=== PATIENT | female | born 1940 | race Caucasian/White ===

== ENCOUNTER 2018-11-28 02:27 | Day surgery (SDC) | payer MEDICARE, BC ==
--- NOTE | 2018-11-28 03:10 | ED ---
Respiratory - HPI Summary HPI Summary: Pt is a 78 y/o F presenting to the ED with a chief complaint of something stuck in her throat. She states she was eating a roast beef sandwich at around 2100, then later noticed that she could not swallow and had a piece stuck in her throat. She reports wretching without bringing anything up, coughing, difficulty swallowing, and throat pain. - History of Current Complaint Chief Complaint: EDForeignBodyEsophag Stated Complaint: SOMETHING CAUGHT IN THROAT Time Seen by Provider: 11/28/18 02:54 Hx Obtained From: Patient Onset/Duration: Gradual Onset, Lasting Hours, Still Present Timing: Constant Initial Severity: Moderate Current Severity: Moderate Pain Intensity: 5 Sputum Amount: None Aggravating Factor(s): Other - food Alleviating Factor(s): Nothing Associated Signs and Symptoms: Negative - Allergy/Home Medications Allergies/Adverse Reactions: Allergies Allergy/AdvReac Type Severity Reaction Status Date / Time No Known Allergies Allergy Verified 11/28/18 02:45 PMH/Surg Hx/FS Hx/Imm Hx Previously Healthy: Yes Endocrine/Hematology History: Reports: Hx Thyroid Disease - hypothyroidism Denies: Hx Bone Marrow Disease, Hx Diabetes, Hx Sickle Cell Disease, Hx Anemia Cardiovascular History: Reports: Hx Hypertension - on meds Denies: Hx Angina, Hx Cardiomegaly, Hx Congestive Heart Failure, Hx Coronary Artery Disease, Hx Pacemaker/ICD, Hx Peripheral Vascular Disease, Hx Rheumatic Fever, Hx Valvular Heart Disease, Other Cardiovascular Problems/Disorders Respiratory History: Reports: Hx Chronic Obstructive Pulmonary Disease (COPD) Denies: Hx Asthma, Hx Chronic Bronchitis, Hx Cystic Fibrosis, Hx Lung Cancer , Hx Pleural Effusion, Hx Pneumonia, Hx Pulmonary Edema, Hx Pulmonary Embolism, Hx Seasonal Allergies, Hx Sleep Apnea, Other Respiratory Problems/Disorders GI History: Reports: Hx Gall Bladder Disease - 09/19/14 Denies: Hx Cirrhosis, Hx Crohn's Disease, Hx Diverticulosis, Hx Gastroesophageal Reflux Disease, Hx Gastrointestinal Bleed, Hx Hiatal Hernia, Hx Irritable Bowel, Hx Jaundice, Hx Obstructive Bowel, Hx Ileostomy, Hx Pyloric Stenosis, Hx Ulcer, Other GI Disorders History: Reports: Hx Kidney Stones - 5 years ago Denies: Hx Renal Disease Musculoskeletal History: Reports: Hx Arthritis - osteoarthritis for about 15 years, Hx Back Problems - bulging discs and bone spurs on cervical vertebrae, Hx Tendonitis - in forearms in the past Denies: Hx Bursitis, Hx Congenital Bone Abnormalities, Hx Fibromyalgia, Hx Gout, Hx Orthopedic Injury, Hx Osteoporosis, Hx Scoliosis Sensory History: Reports: Hx Cataracts, Hx Contacts or Glasses - reading, Hx Hearing Problem - slightly hard of hearing Denies: Hx Eye Injury, Hx Eye Prosthesis, Hx Glaucoma, Hx Legally Blind, Hx Macular Degeneration, Hx Vision Problem, Hx Deafness, Hx Hearing Aid, Other Sensory Impairments Opthamlomology History: Reports: Hx Cataracts, Hx Contacts or Glasses - reading Denies: Hx Eye Injury, Hx Eye Prosthesis, Hx Glaucoma, Hx Legally Blind, Hx Macular Degeneration, Hx Vision Problem, Other Sensory Impairments Neurological History: Denies: Hx Headaches, Hx Migraine, Hx Nerve Disease, Hx Seizures, Other Neuro Impairments/Disorders Psychiatric History: Denies: Hx Anxiety, Hx Depression, Hx Panic Disorder - Cancer History Hx Chemotherapy: No Hx Radiation Therapy: No - Surgical History Surgery Procedure, Year, and Place: 1976 tubal ligation; nasal polyp removed in the Hx Anesthesia Reactions: No Infectious Disease History: No Infectious Disease History: Reports: Hx Shingles Denies: Hx Clostridium Difficile, Hx Hepatitis, Hx Human Immunodeficiency Virus (HIV), Hx of Known/Suspected MRSA, Hx Tuberculosis, Traveled Outside the [place] in Last 30 Days - Family History Known Family History: Negative: Cardiac Disease - Social History Alcohol Use: Occasionally Hx Substance Use: No Substance Use Type: Reports: None Substance Use Comment - Amount & Last Used: pain meds for discs in back Hx Tobacco Use: Yes Smoking Status (MU): Former Smoker Amount Used/How Often: less than one pack per day Length of Time of Smoking/Using Tobacco: quit 15 years ago; smoked for 30 years Have You Smoked in the Last Year: No Review of Systems Positive: Sore Throat, Other - trouble swallowing Positive: Cough Positive: Vomiting All Other Systems Reviewed And Are Negative: Yes Physical Exam - Summary Physical Exam Summary: Constitutional: Well-developed, Well-nourished, Alert, in obvious discomfort, not tolerating secretions Skin: Warm, Dry HENT: Normocephalic; Atraumatic, phonating relatively well Eyes: Conjunctiva normal, capillaries around the eyes are slightly burst from wretching and coughing Neck: Musculoskeletal ROM normal neck. (-) JVD, (-) Stridor, (-) Tracheal deviation Cardio: Rhythm regular, rate normal, Heart sounds normal; Intact distal pulses; The pedal pulses are 2+ and symmetric. Radial pulses are 2+ and symmetric. Pulmonary/Chest wall: Effort normal. (-) Respiratory distress, (-) Wheezes, (-) Rales, (-) Stridor Abd: Soft, (-) tenderness, (-) Distension, (-) Guarding, (-) Rebound Musculoskeletal: (-) Edema Neuro: Alert, Oriented x3 Psych: Mood and affect Normal Triage Information Reviewed: Yes Vital Signs On Initial Exam: Initial Vitals Temp Pulse Resp BP Pulse Ox 97.6 F 66 20 144/89 96 11/28/18 02:30 11/28/18 02:30 11/28/18 02:30 11/28/18 02:30 11/28/18 02:30 Vital Signs Reviewed: Yes Diagnostics - Vital Signs Vital Signs Temp Pulse Resp BP Pulse Ox 11/28/18 02:30 97.6 F 66 20 144/89 96 - Laboratory Lab Statement: Any lab studies that have been ordered have been reviewed, and results considered in the medical decision making process. Disposition - Course Course Of Treatment: Pt is a 78 y/o F presenting to the ED with a chief complaint of something stuck in her throat. She states she was eating a roast beef sandwich at around 2100, then later noticed that she could not swallow and had a piece stuck in her throat. She reports wretching without bringing anything up, coughing, difficulty swallowing, and throat pain. On exam, it is obvious there is something obstructing her airway from her intolerance of secretions, wretching, and coughing. I spoke with Dr. Conti at 0300 about the pt's condition who recommended calling ENT. I spoke with Dr. Murphy at 0307 about the pt's present condition who recommended calling GI. 0311 - I spoke with Dr. Conti who will come to evaluate the pt. GI was unable to take out the piece of food. I called Dr. Murphy at 0510 who will be coming in to see the patient. The pt will be admitted to the OR to remove the foreign body. - Diagnoses Provider Diagnoses: Food impaction of esophagus Discharge - Sign-Out/Discharge Documenting (check all that apply): Patient Departure - Discharge Plan Condition: Stable Disposition: ADMITTED TO [facility] Referrals: Jasper Ruby MD [Primary Care Provider] - - Attestation Statements Document Initiated by Scribe: Yes Documenting Scribe: Anais Hutchinson Provider For Whom Giovanni is Documenting (Include Credential): Anand Cisneros MD. Scribe Attestation: I, Anais Hutchinson, scribed for Anand Cisneros MD. on 11/28/18 at 0604. Status of Scribe Document: Ready Consult Consult: I spoke with Dr. Conti at 0300 about the pt's condition who recommended calling ENT. I spoke with Dr. Murphy at 0307 about the pt's present condition who recommended calling GI. 0311 - I spoke with Dr. Conti who will come to evaluate the pt.
[2018-11-28] MEDS ORDERED: Midazolam* 1 MG/ML 5 ML VIAL (5 MG) ONE (04:46)
[2018-11-28] MEDS ORDERED: fentaNYL* 50 MCG/ML 2 ML VIAL (100 MCG VIAL) ONE ×3 (04:46→08:13)
[2018-11-28] MEDS ORDERED: Famotidine IV* 10 MG/ML 2 ML (20 mg) IV ONE (05:58)
[2018-11-28] MEDS ORDERED: Buffered Lidocaine 1% SYRIN* 1 ML/SYRINGE INTRADERM ONE (05:58)
[2018-11-28] MEDS ORDERED: fentaNYL* 50 MCG/ML 2 ML VIAL (100 MCG VIAL) IV PRN (05:59)
[2018-11-28] MEDS ORDERED: DiMENhydriNATE IV* 50 MG/ML VIAL IV PUSH PRN (05:59)
[2018-11-28] MEDS ORDERED: Naloxone* 0.4 MG/ML 1 ML VIAL IV PRN (05:59)
[2018-11-28] MEDS ORDERED: Lactated Ringers 1000 ML Bag* 1,000 ML IV SCH (06:00)
[2018-11-28] MEDS ORDERED: Lidocaine 2% PF * 5 ML VIAL ONE (06:08)
[2018-11-28] MEDS ORDERED: Succinylcholine* 20 MG/ML 10 ML VIAL ONE (06:08)
[2018-11-28] MEDS ORDERED: Propofol* 10 MG/ML 20 ML BTL ONE (06:08)
--- NOTE | 2018-11-28 06:12 | PRO ---
DATE OF PROCEDURE: 11/28/18 [facility] PROCEDURE: Attempted EGD. I was called by the emergency room physician at approximately little bit after 3 a.m. for complaints of meat stuck in the posterior pharynx. I recommended the emergency room physician call ENT given the location of the foreign body. The emergency room physician did call ENT. ENT felt it was in the esophagus and that this was a GI management issue. MEDICATIONS GIVEN: 50 mcg IV fentanyl, 3 mg IV Versed. PROCEDURE IN DETAIL: After the EGD procedure, including the risks, benefits, and alternatives, not limited to perforation, surgery, and/or were explained to the patient, written consent was then obtained, IV medication was given, and a bite block was placed between the teeth. An Olympus gastroscope was then inserted into the patient's mouth and advanced to the posterior pharynx. I immediately saw just behind the epiglottis a large meat bolus. I did suction all the secretions and tried to navigate around the meat bolus. Unfortunately, I could not. It is up very high, just behind the epiglottis on the upper esophageal sphincter. Unfortunately, I was unable to use any instruments in this area. The snare was too big, too open in this area. We do not have tools or instruments small enough in order to maneuver in the posterior pharynx to grasp the meat bolus. The patient tolerated the procedure well. The scope was then withdrawn and I communicated with the emergency room physician that the meat bolus was too high for us to successfully remove it, that ENT would likely have better chances. IMPRESSION: 1. Incomplete EGD due to foreign body being stuck in the posterior pharynx. 2. The emergency room physician is going to call ENT back. [id number]/[facility] #: [id number] [facility] CENTERLisseth
--- NOTE | 2018-11-28 06:12 | CONS ---
CONSULTATION REPORT: DATE OF CONSULT: 11/28/18 REQUESTING PHYSICIAN: Emergency room physician. INDICATION: Esophageal foreign body. NARRATIVE: Mrs. Boswell is a 78-year-old female with a history of hypertension, COPD, who presents to the emergency room due to complaints of inability to swallow her own saliva and throat pain. The patient states that approximately at 9 p.m. this evening, she was eating some left over flank steak and it became stuck. She initially thought she could wait it out at home and maybe it would pass, however, she subsequently started developing chest pain. She became afraid and came to the emergency room. She states that this has never happened to her before. She is unable to swallow her own saliva. I did give her a single sip of water and it did come back up on her. She denies any history of heartburn in the past. No history of esophageal foreign bodies. No family history of esophageal issues. PAST MEDICAL HISTORY: Please see the HPI. Additionally, she has hypothyroidism , diverticulosis, arthritis, and cataracts. PAST SURGICAL HISTORY: Includes tubal ligation. MEDICATIONS: Include; 1. Lisinopril for hypertension. 2. Synthroid. 3. Multiple inhalers for her COPD. FAMILY HISTORY: She had no esophageal issues in the family. SOCIAL HISTORY: Occasionally uses alcohol. No tobacco. She quit approximately 15 years ago. She has smoked for 30 years. REVIEW OF SYSTEMS: Twelve systems were reviewed. Other than that mentioned in the HPI were unremarkable. PHYSICAL EXAM: Temperature is 97.6, blood pressure is 144/89, pulse is 66, respiratory rate of 20, O2 saturation is 96%. General: An elderly appearing female, appears her stated age, alert, oriented, pleasant, fluent. HEENT: Mucous membranes are moist without lesions, ulcers, or exudates. She does have dentures in place. Lungs: Clear to auscultation. Heart: Regular rate and rhythm. Abdomen: Positive bowel sounds, soft, nontender, nondistended. ASSESSMENT AND PLAN: This is a 78-year-old female who is eating flank steak at 9 p.m. and it became stuck. She is unable to swallow liquids. We will perform an upper endoscopy with hopeful foreign body removal in the emergency room. [id number]/[facility] #: [id number] [facility]
[2018-11-28] MEDS ORDERED: Famotidine IV* 10 MG/ML 2 ML (20 mg) ONE (06:22)
[2018-11-28] MEDS ORDERED: Ondansetron INJ* 2 MG/ML VIAL ONE (07:21)
--- NOTE | 2018-11-28 08:42 | OP ---
DATE OF OPERATION: 11/28/18 - SDS DATE OF : 40 SURGEON: Leo Murphy M.D. ANESTHESIA: General. PRE-OP DIAGNOSIS: Foreign body of esophagus and dysphagia with possible aspiration. POST-OP DIAGNOSIS: Foreign body of esophagus and dysphagia with possible aspiration. OPERATIVE PROCEDURE: Laryngoscopy, esophagoscopy, and bronchoscopy. COUNTS: Instrument and sponge count correct. BLOOD LOSS: Minimal. BRIEF HISTORY: This is a 78-year-old female aspirated and choked on a large piece of meat. Attempted removal by the GI service was futile, the patient was therefore taken to the operating room. DESCRIPTION OF PROCEDURE: The patient was taken to the operating room. General anesthetic was induced, patient intubated. A rigid esophagoscope was used, large pieces of meat was removed from the esophagus. The esophagoscope was then passed on to about 28 cm. Once removed, the esophageal mucosa was noted to be healthy. We passed the bronchoscope through the endotracheal tube, examined all the major bronchi. There was no evidence of any foreign body. The bronchoscope was removed. The patient was awakened, sent to Recovery in stable condition. [id number]/[facility] #: [id number] MTDLisseth
[2018-11-28 09:03] VITALS: BP 154/82
== END 2018-11-28 06:37 | disposition home or self-care (01) ==
LOC: ED 02:27 → OR 06:37
PROVIDERS: ATTEND Otolaryngology
DX: T18.128A Food in esophagus causing other injury, initial encounter (principal); I10 Essential (primary) hypertension; J44.9 Chronic obstructive pulmonary disease, unspecified; Z87.891 Personal history of nicotine dependence; E03.9 Hypothyroidism, unspecified; X58.XXXA Exposure to other specified factors, initial encounter; Y93.89 Activity, other specified; Y92.9 Unspecified place or not applicable
CPT/HCPCS: 88305; 99156; 99285; J0330; J2250; J2405; J2704; J3010

== ENCOUNTER 2023-01-30 06:14 | Observation (INO) ==
[2023-01-30 09:00] LABS: ABS Lymphocytes 0.3 10^3/uL (1.0-4.8); ABS Monocytes 0.4 10^3/uL (0.0-0.9); ABS Neutrophils 4.6 10^3/uL (1.5-7.6); Eosinophil % 0.2 %; Hematocrit 35.8 % (35-45); Hemoglobin 12.7 g/dL (11.5-14.3); Lymphocyte % 5.4 %; Mean Corpuscular Hemoglobin 38.5 pg (27-33); Mean Corpuscular Hgb Conc 35.4 g/dL (31-36); Mean Platelet Volume 6.9 fL (7.5-11.2); Nucleated Red Blood Cells % 0.1 /100 WBC (0.0-0.4); Platelet Count 173 10^3/uL (150-450); Red Blood Count 3.28 10^6/uL (3.63-4.92); Red Cell Distribution Width 14.9 % (12-17); White Blood Count 5.3 10^3/uL (3.8-11.8)
[2023-01-30 09:01] LABS: INR 0.9 (0.83-1.13)
[2023-01-30 09:05] LABS: Albumin 4.3 g/dL (3.2-5.2); CO2 Carbon Dioxide 22 mmol/L (22-32); Calcium 8.9 mg/dL (8.6-10.3); Chloride 98 mmol/L (101-111); Sodium 136 mmol/L (135-145)
[2023-01-30 09:11] LABS: ALT 72 U/L (7-52); Albumin/Globulin Ratio 1.4 (1-3); Alkaline Phosphatase 74 U/L (35-149); Blood Urea Nitrogen 42 mg/dL (6-24); C Reactive Protein 12.47 mg/L (<8.01); Creatinine, Serum 1.22 mg/dL (0.51-0.95); Glucose 98 mg/dL (70-100); Total Protein 7.3 g/dL (6.4-8.9); eGFR CKD-EPI 44.3 (>60)
[2023-01-30 09:12] LABS: High Sens Troponin Baseline 22 pg/mL (<15)
[2023-01-30 09:19] LABS: Anion Gap 16 mmol/L (2-16)
[2023-01-30] MEDS ORDERED: Lactated Ringers 1000 ml BAG 1,000 ML IV ONE (09:24)
[2023-01-30 09:36] LABS: TSH Ultra Thyroid Stim Horm 4.67 mcIU/mL (0.34-5.60)
[2023-01-30] MEDS ORDERED: Ondansetron 4 mg VIAL 2 MG/ML 2 ml VIAL IV ONE (09:48)
[2023-01-30] MEDS ORDERED: Acetaminophen IV 1 GM/100ML 1,000 MG/100 ML BAG IV PRN (09:48)
[2023-01-30 10:16] LABS: High Sensitivity Troponin 1 Hr 24 pg/mL (<15)
[2023-01-30] MEDS ORDERED: Polyethylene Glycol 3350 17 GM PACKET PO PRN (12:06)
[2023-01-30] MEDS ORDERED: Senna TAB 8.6 mg TAB PO PRN (12:06)
[2023-01-30] MEDS ORDERED: Al Hydrox/Mg Hydrox/Simet LIQ 30 ML UDC PO PRN (12:06)
[2023-01-30] MEDS ORDERED: Ondansetron 4 mg VIAL 2 MG/ML 2 ml VIAL IV PRN (12:06)
[2023-01-30 12:42] LABS: Urine Appearance Cloudy; Urine Bilirubin Negative (Negative); Urine Blood 2+ (Negative); Urine Color Yellow; Urine Glucose Negative (Negative); Urine Ketones Trace (Negative); Urine Nitrite Negative (Negative); Urine Protein 1+(30 mg/dL) (Negative); Urine Specific Gravity 1.017 (1.002-1.030); Urine Urobilinogen Negative (Negative)
[2023-01-30 13:11] LABS: Urine Bacteria Absent (Absent); Urine Red Blood Cell Trace(0-2/hpf) (Absent); Urine Squamous Epithelial Cell Present (Absent); Urine White Blood Cell Trace(0-5/hpf) (Absent)
[2023-01-30 15:25] LABS: Folate > 20.00 ng/mL (5.90-24.80)
[2023-01-30 15:27] LABS: Vitamin B12 > 1450 pg/mL (180-914)
[2023-01-30] MEDS ORDERED: Albuterol HFA INHALER 8 gm MDI INH PRN (15:43)
[2023-01-30] MEDS: CMCS: FLUTICAS/UMECLI/VILANT 100-62.5-25 MDI (NF) INH SCH (15:54)
[2023-01-30] MEDS: Enoxaparin 40 MG/0.4 ML SYR SUBCUT SCH (16:10)
[2023-01-31] MEDS: CMCS: FLUTICAS/UMECLI/VILANT 100-62.5-25 MDI (NF) INH SCH (07:16)
[2023-01-31 10:05] LABS: Calcium 8.6 mg/dL (8.6-10.3); Creatinine, Serum 1.04 mg/dL (0.51-0.95); Potassium 3.7 mmol/L (3.5-5.0); eGFR CKD-EPI 53.7 (>60)
[2023-01-31] MEDS: Enoxaparin 40 MG/0.4 ML SYR SUBCUT SCH (13:53)
[2023-02-01 06:11] LABS: ABS Eosinophils 0.1 10^3/uL (0.0-0.5); ABS Lymphocytes 0.3 10^3/uL (1.0-4.8); ABS Monocytes 0.2 10^3/uL (0.0-0.9); ABS Neutrophils 3.2 10^3/uL (1.5-7.6); Eosinophil % 1.4 %; Hematocrit 29.8 % (35-45); Hemoglobin 10.7 g/dL (11.5-14.3); Lymphocyte % 8.9 %; Mean Corpuscular Hemoglobin 39.3 pg (27-33); Mean Corpuscular Hgb Conc 35.8 g/dL (31-36); Mean Corpuscular Volume 109.8 fL (80-97); Mean Platelet Volume 7.2 fL (7.5-11.2); Platelet Count 114 10^3/uL (150-450); Red Blood Count 2.71 10^6/uL (3.63-4.92); Red Cell Distribution Width 14.4 % (12-17); White Blood Count 3.9 10^3/uL (3.8-11.8)
[2023-02-01 06:31] LABS: Albumin 3.7 g/dL (3.2-5.2); Albumin/Globulin Ratio 1.5 (1-3); Calcium 8.1 mg/dL (8.6-10.3); Creatinine, Serum 1.01 mg/dL (0.51-0.95); Globulin 2.4 g/dL (2-4); Potassium 3.4 mmol/L (3.5-5.0); Total Protein 6.1 g/dL (6.4-8.9); eGFR CKD-EPI 55.6 (>60)
[2023-02-01] MEDS ORDERED: Potassium Chloride LIQUID 20 MEQ/15 ML LIQUID PO ONE (07:33)
[2023-02-01] MEDS: CMCS: FLUTICAS/UMECLI/VILANT 100-62.5-25 MDI (NF) INH SCH (08:05)
[2023-02-01 10:59] LABS: Ferritin 599.1 ng/mL (11-307)
[2023-02-01 13:22] LABS: Hematocrit 32.8 % (35-45); Hemoglobin 11.7 g/dL (11.5-14.3)
[2023-02-01 13:50] LABS: Calcium 8.7 mg/dL (8.6-10.3); Creatinine, Serum 0.96 mg/dL (0.51-0.95); Potassium 5.1 mmol/L (3.5-5.0); eGFR CKD-EPI 59.1 (>60)
[2023-02-01 14:26] VITALS: BP 103/83
[2023-02-02 22:03] LABS: Anaplasma phagocytophilum Negative (Negative); B. miyamotoi PCR, B Negative (Negative); Babesia divergens/MO-1 Negative (Negative); Babesia ducani Negative (Negative); Ehrlichia chaffeensis Negative (Negative); Ehrlichia ewingii/canis Negative (Negative); Ehrlichia muris eauclairensis Negative (Negative)
== END 2023-02-01 15:53 | disposition home or self-care (01) ==
LOC: ED 06:14 → EDHOLD 06:14 → MEDTELE 13:57
PROVIDERS: ADMIT Internal Medicine; ATTEND Internal Medicine

== ENCOUNTER 2023-05-20 22:14 | Inpatient (IN) ==
[2023-05-20] MEDS ORDERED: Lactated Ringers 1000 ml BAG 1,000 ML IV ONE (22:45)
[2023-05-20 22:57] LABS: ABS Basophils 0.1 10^3/uL (0.0-0.1); ABS Lymphocytes 1.5 10^3/uL (1.0-4.8); ABS Monocytes 0.2 10^3/uL (0.0-0.9); ABS Neutrophils 5.5 10^3/uL (1.5-7.6); ABS Nucleated RBC 0.01 10^3/ul; Hematocrit 36.2 % (35-45); Hemoglobin 12.1 g/dL (11.5-14.3); Lymphocyte % 19.9 %; Mean Corpuscular Hgb Conc 33.6 g/dL (31-36); Mean Corpuscular Volume 113.4 fL (80-97); Mean Platelet Volume 7.3 fL (7.5-11.2); Nucleated Red Blood Cells % 0.2 %/100WBC (0.0-0.8); Platelet Count 162 10^3/uL (150-450); Red Blood Count 3.19 10^6/uL (3.63-4.92); Red Cell Distribution Width 16.3 % (12-17); White Blood Count 7.3 10^3/uL (3.8-11.8)
[2023-05-20 22:58] LABS: INR 1.04 (0.83-1.13)
[2023-05-20 23:53] LABS: Albumin 4.2 g/dL (3.2-5.2); Albumin/Globulin Ratio 1.8 (1-3); Calcium 8.7 mg/dL (8.6-10.3); Creatinine, Serum 0.96 mg/dL (0.51-0.95); Globulin 2.3 g/dL (2-4); Potassium 3.1 mmol/L (3.5-5.0); Total Protein 6.5 g/dL (6.4-8.9); eGFR CKD-EPI 59.1 (>60)
[2023-05-20] MEDS ORDERED: Thiamine 100 MG/ML 2 ml VIAL (200 mg) IV ONE (23:54)
[2023-05-20 23:57] LABS: High Sensitivity Troponin 1 Hr 12 pg/mL (<15)
[2023-05-21] MEDS ORDERED: Potassium Chlor 20 meq TAB.ER PO ONE (00:04)
[2023-05-21] MEDS ORDERED: Thiamine IV 100 MG in NS 0.9% 50 ML IV ONE (01:00)
[2023-05-21 02:42] LABS: Urine Appearance Clear; Urine Bilirubin Negative (Negative); Urine Blood Negative (Negative); Urine Color Yellow; Urine Glucose Negative (Negative); Urine Ketones Trace (Negative); Urine Nitrite Negative (Negative); Urine Protein Negative (Negative); Urine Specific Gravity 1.013 (1.002-1.030); Urine Urobilinogen Negative (Negative)
[2023-05-21 03:58] LABS: Magnesium 1.7 mg/dL (1.9-2.7)
[2023-05-21] MEDS ORDERED: Magnesium Sulf 4 GM/100 ML IV 4,000 MG/100 ML BAG IVPB ONE (04:22)
[2023-05-21 04:24] LABS: Folate 17.86 ng/mL (5.90-24.80)
[2023-05-21] MEDS ORDERED: Lactated Ringers 1000 ml BAG 1,000 ML IV ONE ×2 (04:36→07:42)
[2023-05-21] MEDS ORDERED: Lorazepam PYXIS KEY PRN (04:36)
[2023-05-21] MEDS ORDERED: Saline NASAL SPRAY 0.65% BTL BOTH NARES PRN (04:43)
[2023-05-21] MEDS ORDERED: LORazepam 2 mg VIAL 1 ml IV PUSH SCH (05:00)
[2023-05-21] MEDS: Thiamine 100 MG/ML 2 ml VIAL 250 MG in NS 0.9% 100 ml BAG 100 ML IV SCH (06:20)
[2023-05-21 06:47] LABS: Albumin 3.8 g/dL (3.2-5.2); Albumin/Globulin Ratio 1.8 (1-3); Calcium 8.2 mg/dL (8.6-10.3); Creatinine, Serum 0.91 mg/dL (0.51-0.95); Globulin 2.1 g/dL (2-4); Potassium 3.5 mmol/L (3.5-5.0); Total Bilirubin 1.1 mg/dL (0.2-1.0); Total Protein 5.9 g/dL (6.4-8.9)
[2023-05-21 06:58] LABS: Hematocrit 31.7 % (35-45); Mean Corpuscular Hgb Conc 34.7 g/dL (31-36); Mean Corpuscular Volume 112.6 fL (80-97); Mean Platelet Volume 7.3 fL (7.5-11.2); Platelet Count 123 10^3/uL (150-450); Red Blood Count 2.81 10^6/uL (3.63-4.92); Red Cell Distribution Width 16.1 % (12-17); White Blood Count 5.3 10^3/uL (3.8-11.8)
[2023-05-21] MEDS ORDERED: Dextrose 50% Syringe 50 ml 25 GM/50 ML SYRINGE IV PUSH ONE (07:20)
[2023-05-21] MEDS: Multivitamins/Minerals TAB PO SCH (08:54)
[2023-05-21] MEDS ORDERED: Dextrose 50% Syringe 50 ml 25 GM/50 ML SYRINGE IV PUSH PRN (11:10)
[2023-05-21] MEDS ORDERED: D5W 1/2 NS 1000 ml BAG 1,000 ML IV SCH (12:00)
[2023-05-21] MEDS: Ondansetron 4 mg VIAL 2 MG/ML 2 ml VIAL IV PRN (12:00)
[2023-05-21] MEDS: D5W 1/2 NS 1000 ml BAG 1,000 ML IV SCH (18:09)
[2023-05-21] MEDS: CMCS:FLUTICAS/UMECLI/VILANT 100-62.5-25 MDI (NF) INH SCH (19:12)
[2023-05-22] MEDS: Thiamine 100 MG/ML 2 ml VIAL 250 MG in NS 0.9% 100 ml BAG 100 ML IV SCH (06:27)
[2023-05-22 06:49] LABS: ABS Lymphocytes 0.9 10^3/uL (1.0-4.8); ABS Monocytes 0.3 10^3/uL (0.0-0.9); ABS Neutrophils 4.1 10^3/uL (1.5-7.6); ABS Nucleated RBC 0.01 10^3/ul; Eosinophil % 0.2 %; Hematocrit 29.5 % (35-45); Hemoglobin 10.3 g/dL (11.5-14.3); Lymphocyte % 17.2 %; Mean Corpuscular Hemoglobin 38.8 pg (27-33); Mean Corpuscular Volume 110.9 fL (80-97); Mean Platelet Volume 7.8 fL (7.5-11.2); Nucleated Red Blood Cells % 0.3 %/100WBC (0.0-0.8); Platelet Count 92 10^3/uL (150-450); Red Blood Count 2.66 10^6/uL (3.63-4.92); Red Cell Distribution Width 15.9 % (12-17); White Blood Count 5.4 10^3/uL (3.8-11.8)
[2023-05-22 07:10] LABS: Calcium 7.9 mg/dL (8.6-10.3); Creatinine, Serum 0.95 mg/dL (0.51-0.95); Magnesium 2.3 mg/dL (1.9-2.7); Phosphorus 2.1 mg/dL (2.5-5.0); Potassium 3.8 mmol/L (3.5-5.0); eGFR CKD-EPI 59.8 (>60)
[2023-05-22] MEDS: CMCS:FLUTICAS/UMECLI/VILANT 100-62.5-25 MDI (NF) INH SCH (08:53)
[2023-05-22] MEDS: Multivitamins/Minerals TAB PO SCH (10:40)
[2023-05-22] MEDS: Ondansetron 4 mg VIAL 2 MG/ML 2 ml VIAL IV PRN (10:40)
[2023-05-22] MEDS: D5W 1/2 NS 1000 ml BAG 1,000 ML IV SCH (14:18)
[2023-05-23] MEDS: Thiamine 100 MG/ML 2 ml VIAL 250 MG in NS 0.9% 100 ml BAG 100 ML IV SCH (06:03)
[2023-05-23] MEDS: CMCS:FLUTICAS/UMECLI/VILANT 100-62.5-25 MDI (NF) INH SCH (08:00)
[2023-05-23 08:42] LABS: Hematocrit 28.9 % (35-45); Hemoglobin 10.2 g/dL (11.5-14.3); Mean Corpuscular Hemoglobin 39.4 pg (27-33); Mean Corpuscular Hgb Conc 35.1 g/dL (31-36); Mean Corpuscular Volume 112.2 fL (80-97); Red Blood Count 2.58 10^6/uL (3.63-4.92); Red Cell Distribution Width 15.6 % (12-17); White Blood Count 4.7 10^3/uL (3.8-11.8)
[2023-05-23 08:53] LABS: Albumin 3.5 g/dL (3.2-5.2); Albumin/Globulin Ratio 1.7 (1-3); Calcium 8.1 mg/dL (8.6-10.3); Creatinine, Serum 0.86 mg/dL (0.51-0.95); Globulin 2.1 g/dL (2-4); Potassium 3.5 mmol/L (3.5-5.0); Total Bilirubin 1.4 mg/dL (0.2-1.0); Total Protein 5.6 g/dL (6.4-8.9); eGFR CKD-EPI 67.4 (>60)
[2023-05-23] MEDS ORDERED: Influenza vaccine *QUAD* *2023-24* 0.5 ML SYRINGE IM ONE (09:00)
[2023-05-23] MEDS: Multivitamins/Minerals TAB PO SCH (09:06)
[2023-05-23 09:28] LABS: ABS Eosinophils 0.1 10^3/uL (0.0-0.5); ABS Lymphocytes 0.8 10^3/uL (1.0-4.8); ABS Monocytes 0.2 10^3/uL (0.0-0.9); ABS Neutrophils 3.6 10^3/uL (1.5-7.6); Eosinophil % 2.1 %; Lymphocyte % 16.3 %; Mean Platelet Volume 7.8 fL (7.5-11.2); Platelet Count 74 10^3/uL (150-450)
[2023-05-23] MEDS ORDERED: Benzocaine/Menthol LOZ MT PRN (13:13)
[2023-05-23] MEDS ORDERED: Potassium Chlor 20 meq TAB.ER PO ONE (14:58)
[2023-05-24] MEDS: Thiamine 100 MG/ML 2 ml VIAL 250 MG in NS 0.9% 100 ml BAG 100 ML IV SCH (06:19)
[2023-05-24 08:10] LABS: ABS Eosinophils 0.1 10^3/uL (0.0-0.5); ABS Lymphocytes 0.6 10^3/uL (1.0-4.8); ABS Monocytes 0.2 10^3/uL (0.0-0.9); ABS Neutrophils 2.4 10^3/uL (1.5-7.6); Eosinophil % 3.6 %; Hematocrit 28.1 % (35-45); Hemoglobin 9.6 g/dL (11.5-14.3); Lymphocyte % 18.7 %; Mean Corpuscular Hemoglobin 38.7 pg (27-33); Mean Corpuscular Hgb Conc 34.2 g/dL (31-36); Mean Corpuscular Volume 112.9 fL (80-97); Mean Platelet Volume 8.4 fL (7.5-11.2); Platelet Count 70 10^3/uL (150-450); Red Blood Count 2.49 10^6/uL (3.63-4.92); Red Cell Distribution Width 15.1 % (12-17); White Blood Count 3.3 10^3/uL (3.8-11.8)
[2023-05-24 08:18] LABS: Creatinine, Serum 0.8 mg/dL (0.51-0.95); Potassium 3.7 mmol/L (3.5-5.0); eGFR CKD-EPI 73.5 (>60)
[2023-05-24] MEDS: CMCS:FLUTICAS/UMECLI/VILANT 100-62.5-25 MDI (NF) INH SCH (08:19)
[2023-05-24] MEDS: Multivitamins/Minerals TAB PO SCH (09:09)
[2023-05-24] MEDS ORDERED: cefTRIAXone 1 gm/50 mL D5W 1 GM/50 ML BAG IV SCH (11:00)
[2023-05-24] MEDS: cefTRIAXone 1 GM Q24H (ADVAN) IVPB SCH (11:47)
[2023-05-25] MEDS: CMCS:FLUTICAS/UMECLI/VILANT 100-62.5-25 MDI (NF) INH SCH (08:01)
[2023-05-25] MEDS: Multivitamins/Minerals TAB PO SCH (09:26)
[2023-05-25 11:10] VITALS: BP 174/82
[2023-05-25] MEDS: cefTRIAXone 1 GM Q24H (ADVAN) IVPB SCH (11:41)
[2023-05-25 15:36] LABS: Anaplasma phagocytophilum Negative (Negative); B. miyamotoi PCR, B Negative (Negative); Babesia divergens/MO-1 Negative (Negative); Babesia ducani Negative (Negative); Ehrlichia chaffeensis Negative (Negative); Ehrlichia ewingii/canis Negative (Negative); Ehrlichia muris eauclairensis Negative (Negative)
== END 2023-05-25 13:00 | disposition home or self-care (01) | DRG 193 ==
LOC: EDHOLD 22:14 → ED 22:14 → MED 05-21 18:35
PROVIDERS: ADMIT Hospitalist; ATTEND Internal Medicine